=== PATIENT | male | born 2000 | race Caucasian/White ===

== ENCOUNTER 2022-04-04 05:08 | Inpatient (IN) | payer BC ==
[2022-04-04] VITALS (26 sets, daily range): BP systolic 86–122; BP diastolic 40–75
[~2022-04-04] VITALS: Ht 180.3 cm; Wt 66.4 kg
[2022-04-04] MEDS ORDERED: NO HOME MEDS (05:17)
[2022-04-04] MEDS ORDERED: magnesium hydroxide 30ml (MOM) UD suspension PO PRN (05:50)
[2022-04-04] MEDS ORDERED: magnesium Cl slow-release 64mg tablet PO PRN (05:50)
[2022-04-04] MEDS ORDERED: morphine 2 MG/ML inj. syringe IV PRN ×2 (05:50→15:50)
[2022-04-04] MEDS ORDERED: HYDROcodone/acetaminophen 5mg/325mg tablet PO PRN ×2 (05:50→19:00)
[2022-04-04] MEDS ORDERED: POTASSIUM BICARB 20meq eff tab 20 MEQ TABLET.EFF PO PRN (05:50)
[2022-04-04] MEDS ORDERED: acetaminophen 325mg tablet PO PRN (05:50)
[2022-04-04] MEDS ORDERED: ondansetron/PF 4mg/2ml inj IV PRN ×3 (05:50→19:00)
[2022-04-04] MEDS ORDERED: magnesium 4gm in 100ml NS 100 ML IV PRN (05:50)
[2022-04-04] MEDS ORDERED: mag hydrox/Alum hydrox/simeth 30ml oral suspension PO PRN (05:50)
[2022-04-04] MEDS ORDERED: magnesium 2GM in 50ml NS 50 ML IV PRN (05:50)
[2022-04-04] MEDS ORDERED: potassium CL 10mEq/100ml bag 100 ML IV PRN (05:50)
[2022-04-04 06:11] LABS: MAGNESIUM 1.5 MG/DL (1.5-2.4); POTASSIUM 3.4 MMOL/L (3.5-5.1)
[2022-04-04] MEDS: morphine 2 MG/ML inj. syringe IV PRN ×3 (06:41→20:32)
[2022-04-04] MEDS: dextrose 5%-1/2 normal saline 1,000 ML IV SCH ×2 (06:43→15:50)
[2022-04-04 07:25] LABS: BASOPHILS % (AUTO) 0.2 % (0-1); EOSINOPHILS % (AUTO) 0.2 % (0-6); HEMATOCRIT 41.1 % (42.0-52.0); HEMOGLOBIN 14.1 g/dl (14.0-17.9); LYMPHOCYTES # (AUTO) 1.4 X10'3 (1.1-4.8); LYMPHOCYTES % (AUTO) 9.5 % (21-51); MEAN CORPUSCULAR HEMOGLOBIN 31.1 PG (27.0-31.0); MEAN CORPUSCULAR HGB CONC 34.2 g/dL (33.0-36.5); MEAN CORPUSCULAR VOLUME 91.1 FL (78-98); MONOCYTES % (AUTO) 6.8 % (2-12); NEUTROPHILS # (AUTO) 12.2 X10'3 (1.8-7.7); NEUTROPHILS % (AUTO) 83.3 % (42-75); PLATELET COUNT 205 X10'3 (140-440); RED BLOOD COUNT 4.52 X10'6 (4.70-6.10); RED CELL DISTRIBUTION WIDTH 12.7 % (11.5-14.5); WHITE BLOOD COUNT 14.6 X10'3 (4.5-11.0)
[2022-04-04 07:46] LABS: ANION GAP 14 (8-16); BILIRUBIN,TOTAL 0.6 MG/DL (0.1-1.0); BLOOD UREA NITROGEN 9 MG/DL (7-18); BUN/CREATININE RATIO 9.5 (5.4-32.0); CALCIUM 8.4 MG/DL (8.5-10.1); CHLORIDE 103 MMOL/L (99-107); CREATININE 0.95 MG/DL (0.60-1.10); GLUCOSE 98 MG/DL (70-104); SODIUM 141 MMOL/L (135-145); TOTAL CARBON DIOXIDE 24.4 MMOL/L (24-32); eGFR > 90 ML/MIN
[2022-04-04 07:47] LABS: ALANINE AMINOTRANSFERASE 17 U/L (12-78); ALBUMIN 3.8 G/DL (3.4-5.0); ALBUMIN/GLOBULIN RATIO 1.1 (1.1-1.5); ALKALINE PHOSPHATASE 82 IU/L (20-180); ASPARTATE AMINO TRANSFERASE 18 U/L (10-37); TOTAL PROTEIN 7.3 G/DL (6.4-8.2)
[2022-04-04] MEDS: enoxaparin 40mg/0.4ml syringe SUBCUT SCH (08:00)
[2022-04-04] MEDS: docusate sod 100mg capsule PO SCH ×2 (08:00→20:35)
[2022-04-04] MEDS: piperacillin/tazo 3.375gm/50ml 50 ML IV SCH ×3 (08:00→23:24)
[2022-04-04] MEDS: K and/or MAG REPLACEMENT MC SCH ×2 (08:00→20:00)
[2022-04-04 09:43] LABS: APTT 31 SECONDS (22-32)
[2022-04-04] MEDS ORDERED: LIDOcaine 1% 30ml preserv. free vial ONE (14:23)
[2022-04-04] MEDS ORDERED: BUPIVAcaine/PF 2.5 mg/ml (0.25%) 30ml vial ONE (14:23)
[2022-04-04] MEDS ORDERED: midazolam 1 mg/ML 2ml injection ONE (15:07)
[2022-04-04] MEDS ORDERED: fentaNYL/PF 50MCG/1 ML 2ML syringe ONE (15:07)
[2022-04-04] MEDS ORDERED: LIDOcaine 2% (20mg/ml) 5ml vial ONE (15:08)
[2022-04-04] MEDS ORDERED: rocuronium 10mg/ml inj IV ONE (15:08)
[2022-04-04] MEDS ORDERED: propofol inj 20 ML IV ONE (15:08)
[2022-04-04] MEDS ORDERED: meperidine/PF 25mg/ml syringe IV PRN ×3 (15:50)
[2022-04-04] MEDS ORDERED: ringers solution, lacted 1,000 ML IV SCH (15:50)
[2022-04-04] MEDS ORDERED: proCHLORperazine 10 MG/2 ml inj IV PRN (15:50)
[2022-04-04] MEDS ORDERED: morphine 4 MG/ML inj SYRINge IV PRN (15:50)
[2022-04-04] MEDS ORDERED: ceFOXitin 1000 MG inj ONE (15:52)
[2022-04-04] MEDS ORDERED: dexamethasone sod phosphate 4mg/ml inj. ONE (15:52)
[2022-04-04] MEDS ORDERED: ondansetron/PF 4mg/2ml inj ONE (15:52)
[2022-04-04] MEDS ORDERED: neostigmine methylsulfate 1 MG/ML 10ml vial ONE (16:34)
[2022-04-04] MEDS ORDERED: glycopyrrolate 0.2mg/ml inj ONE (16:34)
--- NOTE | 2022-04-04 16:51 | NUR ---
Received from OR via [facility], accompanied by Anesthesiologist CHESTER GRANT and report given by Anesthesiolgist. PT PRESENT WITH 20G RIGHT AC, ABD DRESSING [place]IÁN, VSS. Addendum: 04/04/22 at 1714 by Gladis Bain RN, RN Amended: Links added.
[2022-04-04] MEDS ORDERED: HYDROcodone/acetaminophen 5mg/325mg tablet PO ONE (17:15)
[2022-04-04] MEDS ORDERED: HYDR-3964 PO (17:16)
[2022-04-04] MEDS ORDERED: meperidine/PF 25mg/ml syringe ONE (17:38)
--- NOTE | 2022-04-04 18:34 | NUR ---
PT UP TO THE BATHROOM, WHILE WALKING PT HAD A NEAR SYNCOPAL EPISODE. PT TAKEN BACK TO BED WITH BP OF 86/40, 74, 22,96 RA. FLUIDS CONTINUED AND BED IN [place] POSITION.
[2022-04-04] MEDS ORDERED: naloxone 0.4 mg/ml inj IV PRN (19:00)
[2022-04-04] MEDS ORDERED: HYDROcodone/acetaminophen 10/325mg tab PO PRN (19:00)
--- NOTE | 2022-04-04 19:04 | NUR ---
PT REPORTS "FEELING BETTER" BED IN SUPINE POSITION WITH HR 75, 98 RA, R 23, 106/65. DR OLMSTEAD CALLED AND NOTIFIED OF PT'S NEAR SYNCOPAL EPISODE AND HAD PUT IN TRNAFER ORDERS TO ORTHO/NEURO. AUTO BODY CUSTOMIZER IBAN OWEN NOTIFIED.
--- NOTE | 2022-04-04 19:06 | NUR ---
PT'S [facility] [phone].
--- NOTE | 2022-04-04 19:41 | NUR ---
Report called to receiving nurse ANETTE OWEN. Transferred via GURNEY TO ROOM 4010A. ONE PT Belongings BAG SENT WITH PT AND CELL PHONE TO ROOM 4010A. . Special Issues communicated to receiving nurse. Addendum: 04/04/22 at 2005 by Gladis Bain RN RN Amended: Links added.
--- NOTE | 2022-04-04 19:45 | NUR ---
RECEIVED REPORT FROM UDAY OWEN. PATIENT COMING UP TO 4010A VIA [facility]
[2022-04-04] MEDS: acetaminophen 325mg tablet PO SCH (20:35)
[2022-04-04] MEDS: POTASSIUM BICARB 20meq eff tab 20 MEQ TABLET.EFF PO PRN (20:36)
[2022-04-04] MEDS: potassium CL 20mEq in D5-1/2NS 1,000 ML IV SCH (22:07)
[2022-04-04] MEDS: ketorolac trometh. 30mg/ml inj. IV SCH (23:25)
[2022-04-05] MEDS: POTASSIUM BICARB 20meq eff tab 20 MEQ TABLET.EFF PO PRN (01:04)
[2022-04-05] MEDS: dextrose 5%-1/2 normal saline 1,000 ML IV SCH (01:50)
[2022-04-05 02:00] VITALS: BP 100/68
[2022-04-05] MEDS: acetaminophen 325mg tablet PO SCH ×3 (02:00→13:55)
[2022-04-05] MEDS: potassium CL 20mEq in D5-1/2NS 1,000 ML IV SCH (05:01)
[2022-04-05 05:48] LABS: BASOPHILS % (AUTO) 0.2 % (0-1); EOSINOPHILS % (AUTO) 0 % (0-6); HEMATOCRIT 36.5 % (42.0-52.0); HEMOGLOBIN 12.2 g/dl (14.0-17.9); LYMPHOCYTES # (AUTO) 0.8 X10'3 (1.1-4.8); LYMPHOCYTES % (AUTO) 4.8 % (21-51); MEAN CORPUSCULAR HGB CONC 33.5 g/dL (33.0-36.5); MEAN CORPUSCULAR VOLUME 92.4 FL (78-98); MEAN PLATELET VOLUME 9.4 FL (7.4-10.4); MONOCYTES # (AUTO) 1.4 X10'3 (0-0.9); MONOCYTES % (AUTO) 8.3 % (2-12); NEUTROPHILS % (AUTO) 86.7 % (42-75); PLATELET COUNT 292 X10'3 (140-440); RED BLOOD COUNT 3.95 X10'6 (4.70-6.10); RED CELL DISTRIBUTION WIDTH 12.8 % (11.5-14.5); WHITE BLOOD COUNT 17.3 X10'3 (4.5-11.0)
[2022-04-05 06:00] VITALS: BP 93/54
--- NOTE | 2022-04-05 06:02 | NUR ---
Problems reprioritized. Patient report given, questions answered & plan of care reviewed with BRAYDEN Narayan.
[2022-04-05 06:04] LABS: ALANINE AMINOTRANSFERASE 17 U/L (12-78); ALBUMIN 3.4 G/DL (3.4-5.0); ALKALINE PHOSPHATASE 64 IU/L (20-180); ANION GAP 8 (8-16); ASPARTATE AMINO TRANSFERASE 9 U/L (10-37); BILIRUBIN,TOTAL 0.8 MG/DL (0.1-1.0); BLOOD UREA NITROGEN 7 MG/DL (7-18); BUN/CREATININE RATIO 6.4 (5.4-32.0); CALCIUM 8.5 MG/DL (8.5-10.1); CHLORIDE 102 MMOL/L (99-107); CREATININE 1.09 MG/DL (0.60-1.10); GLUCOSE 145 MG/DL (70-104); POTASSIUM 4.1 MMOL/L (3.5-5.1); SODIUM 140 MMOL/L (135-145); TOTAL CARBON DIOXIDE 29.7 MMOL/L (24-32); TOTAL PROTEIN 6.7 G/DL (6.4-8.2); eGFR 86 ML/MIN
[2022-04-05] MEDS: piperacillin/tazo 3.375gm/50ml 50 ML IV SCH (08:33)
[2022-04-05] MEDS: docusate sod 100mg capsule PO SCH (08:34)
[2022-04-05] MEDS: enoxaparin 40mg/0.4ml syringe SUBCUT SCH (08:34)
[2022-04-05] MEDS: ketorolac trometh. 30mg/ml inj. IV SCH (08:35)
[2022-04-05 10:00] VITALS: BP 97/56
--- NOTE | 2022-04-05 13:22 | NUR ---
Patient discharged at this time. Dr. Fernandez called previously that patient has passed gas. All Md instructions taught to patient and family.
== END 2022-04-05 13:22 | disposition home or self-care (01) | DRG 343 ==
LOC: ER 05:09 → ED HOLD 05:50 → ORTHO 4S 20:49
PROVIDERS: ADMIT Internal Medicine; ATTEND Family Medicine
PROC: 8E0W4CZ Robotic Assisted Procedure of Trunk Region, Percutaneous Endoscopic Approach (ICD-10-PCS; 2022-04-04)
PROC: 0DTJ4ZZ Resection of Appendix, Percutaneous Endoscopic Approach (ICD-10-PCS; principal; 2022-04-04 15:36)
DX: K35.80 Unspecified acute appendicitis (principal); Z20.822 Contact with and (suspected) exposure to COVID-19; E87.6 Hypokalemia; Z79.899 Other long term (current) drug therapy
CPT/HCPCS: 36415; 80053; 83735; 85025; 85610; 85730; 87081; 87811; G0378; J0694; J1100; J1650; J1885; J2175; J2250; J2270; J2405; J2543; J2704; J2710; J3010; J3480; J3490; J7042; J7120